=== PATIENT | male | born 1950 | race Caucasian/White ===

== ENCOUNTER 2020-02-29 19:10 | Emergency (ER) | payer OTHER ==
[2020-02-29 19:24] VITALS: BP 145/101; PULSE 103; TEMP 99.1; BMI 37.0
--- NOTE | 2020-02-29 19:39 | PDOC ---
History of Present Illness - General Chief Complaint: Urinary Problem Stated Complaint: Urinary Retention Time Seen by Provider: 02/29/20 19:37 - History of Present Illness Initial Comments: 02/29/20 19:38 HPI 70 y/o M hx of HTN, BPH presents to the ED with urinary retention for the last hour and a half. Pt reports he has has had progressive issues with urine stream, but this is the first time he has been completely unable to void any urine. He reports associated suprapubic pressure and discomfort, but has denied any fevers,chills, nausea,vomiting, PMHx: as noted above ROS: as noted SHx: Denies Etoh, IVDA, tobacco use Allergies: NKDA urologist: Dr. Butch Causey ROS: GENERAL/CONSTITUTIONAL: No fever or chills. No weakness. HEAD, EYES, EARS, NOSE AND THROAT: No change in vision. No ear pain or discharge. No sore throat. CARDIOVASCULAR: No chest pain or shortness of breath RESPIRATORY: No cough, wheezing, or hemoptysis. GASTROINTESTINAL: No nausea, vomiting, diarrhea or constipation. GENITOURINARY: No dysuria, frequency, or change in urination. MUSCULOSKELETAL: No joint or muscle swelling or pain. No neck or back pain. SKIN: No rash NEUROLOGIC: No headache, vertigo, loss of consciousness, or change in strength/sensation. ENDOCRINE: No increased thirst. No abnormal weight change HEMATOLOGIC/LYMPHATIC: No anemia, easy bleeding, or history of blood clots. ALLERGIC/IMMUNOLOGIC: No hives or skin allergy. PE: GENERAL: Awake, alert, and fully oriented, in no acute distress HEAD: No signs of trauma, normocephalic, atraumatic EYES: PERRLA, EOMI, sclera anicteric, conjunctiva clear ENT: Auricles normal inspection, hearing grossly normal, nares patent, oropharynx clear without exudates. Moist mucosa NECK: Normal ROM, supple, no lymphadenopathy, JVD, or masses LUNGS: No distress, speaks full sentences, clear to auscultation bilaterally HEART: Regular rate and rhythm, normal S1 and S2, no murmurs, rubs or gallops, peripheral pulses normal and equal bilaterally. ABDOMEN: Soft, nontender, normoactive bowel sounds. No guarding, no rebound. No masses EXTREMITIES : Normal inspection, Normal range of motion, no edema. No clubbing or cyanosis NEUROLOGICAL: Cranial nerves II through XII grossly intact. Normal speech, normal gait, no focal sensorimotor deficits SKIN: Warm, Dry, normal turgor, no rashes or lesions noted 02/29/20 19:53 02/29/20 19:59 02/29/20 21:43 Past History - Medical History Allergies/Adverse Reactions: Allergies Allergy/AdvReac Type Severity Reaction Status Date / Time No Known Allergies Allergy Verified 02/29/20 19:24 COPD: No Disorders: Yes (enlarge prostate) HTN: Yes - Psycho-Social/Smoking History Smoking History: Never smoked - Substance Abuse Hx (Audit-C & DAST Scrn) How often the patient has a drink containing alcohol: Monthly or less Score: In Men: 4 or > Positive; In Women: 3 or > Positive: 1 Screen Result (Pos requires Nsg. Audit-10AR): Negative In the last yr the pt used illegal drug/Rx for NonMed reason: No Score: Yes response is considered Positive: 0 Screen Result (Positive result requires Nsg. DAST-10): Negative *Physical Exam - Vital Signs Last Vital Signs Temp Pulse Resp BP Pulse Ox 99.1 F 103 H 19 145/101 H 99 02/29/20 19:21 02/29/20 19:21 02/29/20 19:21 02/29/20 19:21 02/29/20 19:21 ED Treatment Course - LABORATORY CBC & Chemistry Diagram: 02/29/20 21:20 02/29/20 21:20 Medical Decision Making - Medical Decision Making 02/29/20 19:59 70 y/o M hx of HTN, BPH presents to the ED with urinary retention for the last hour and a half. Pt reports he has has had progressive issues with urine stream, MDM DDx including but not limited to: Workup: TX: Scores - HEART score - EKG: normal sinus rhythm, HR bpm, AK ms, QRS ms, QTc ms ED course meds: Re-assessment: Ultrasound FINDINGS: There is a Billingsley catheter in the almost empty urinary bladder. Bladder not adequately evaluated due to under distention. Discharge - Discharge Information Problems reviewed: Yes Clinical Impression/Diagnosis: Urinary retention due to benign prostatic hyperplasia Condition: Stable Disposition: HOME - Admission No - Follow up/Referral - Patient Discharge Instructions Patient Printed Discharge Instructions: How to Care for Your Billingsley Catheter -- Male, DI for Urinary Retention in Men Additional Instructions: you were seen in the ED for urinary retention and had a billingsley catheter placed. follow up with your urologist dr. butch causey tomorrow, for further evaluation RETURN TO THE ER -if you develop fevers, chills, abdominal pain or any worsening symptoms from today. - Post Discharge Activity Work/Back to School Note: Back to Work
--- NOTE | 2020-02-29 21:06 | PDOC ---
Documentation entered by Claudia Lee SCRIBE, acting as scribe for Brittney Herr MD. Brittney Herr MD: This documentation has been prepared by the Taya mendoza Sydney, SCRIBE, under my direction and personally reviewed by me in its entirety. I confirm that the documentation accurately reflects all work, treatment, procedures, and medical decision making performed by me. Attending Attestation - Resident Resident Name: Alondra Zhang - ED Attending Attestation I have performed the following: I have examined & evaluated the patient, The case was reviewed & discussed with the resident, I agree w/resident's findings & plan, Exceptions are as noted - HPI HPI: 02/29/20 20:04 Patient is a 70 year old male with a significant past medical history of HTN, BPH who presents to the ED with urinary retention starting 1.5 hours ago. Patient denies having similar symptoms in the past. Denies fever, chills, headache, shortness of breath, nausea, vomiting, or diarrhea. Allergies: NKDA - Physicial Exam PE: 02/29/20 20:40 wnwd 70 yo male p/w urinary retention head ncat neck supple lungs cta b/l cvs [id number] abdomen distended bladder skin warm and dry extremities no LE neuro axox3 - Medical Decision Making 02/29/20 21:05 pt has no fever, no vomiting 14 [place] billingsley placed,urine obtained 02/29/20 22:20 labs reviewed and his cbc is unremarkable,he had normal renal function UA no infection impression BPH,urinary retention he had >400 cc of urine in bag plan d/c home with billingsley and leg bag to see his urologist early this week 02/29/20 22:39 Discharge - Discharge Information Problems reviewed: Yes Clinical Impression/Diagnosis: Urinary retention due to benign prostatic hyperplasia Condition: Stable Disposition: HOME - Follow up/Referral - Patient Discharge Instructions Patient Printed Discharge Instructions: How to Care for Your Billingsley Catheter -- Male, DI for Urinary Retention in Men Additional Instructions: you were seen in the ED for urinary retention and had a billingsley catheter placed. follow up with your urologist dr. sayra mills tomorrow, for further evalu ation RETURN TO THE ER -if you develop fevers, chills, abdominal pain or any worsening symptoms from today. - Post Discharge Activity Work/Back to School Note: Back to Work
[2020-02-29 21:42] LABS: EPI CELLS 1 /uL (0-25.1); HYALINE CASTS 0 /uL (0-3.1); URINE APPEARANCE CLEAR; URINE BACTERIA 3 /uL (0-1359); URINE BILIRUBIN NEGATIVE (NEGATIVE); URINE COLOR YELLOW; URINE GLUCOSE (UA) NEGATIVE (NEGATIVE); URINE KETONE NEGATIVE (NEGATIVE); URINE LEUK ESTERASE NEGATIVE (NEGATIVE); URINE NITRITE NEGATIVE (NEGATIVE); URINE PROTEIN NEGATIVE (NEGATIVE); URINE RBC 1308 /uL (0-23.9); URINE UROBILINOGEN 0.2 mg/dL (0.2-1.0); URINE WBC 2 /uL (0-25.8)
[2020-02-29 21:49] LABS: BASO % 0.6 % (0-2.0); EOS % 0.3 % (0-4.5); HEMATOCRIT 43.5 % (35.4-49); HEMOGLOBIN 14.6 GM/dL (11.7-16.9); LYMPH % 5.6 % (8-40); MCH 30.2 pg (25.7-33.7); MCHC 33.4 g/dl (32.0-35.9); MEAN CELL VOLUME 90.4 fl (80-96); MEAN PLT VOLUME 8.5 fl (7.5-11.1); MONO % 4.4 % (3.8-10.2); NEUT % 89.1 % (42.8-82.8); PLATELET COUNT 189 K/MM3 (134-434); RBC 4.82 M/mm3 (4.00-5.60); WHITE BLOOD COUNT 9.1 K/mm3 (4.0-10.0)
[2020-02-29 21:53] LABS: BLOOD UREA NITROGEN 17.6 mg/dL (7-18); CALCIUM 8.8 mg/dL (8.5-10.1); CREATININE 0.9 mg/dL (0.55-1.3); POTASSIUM 3.4 mmol/L (3.5-5.1)
== END 2020-02-29 23:46 | disposition home or self-care (01) ==
LOC: JER 19:10
DX: N40.1 Benign prostatic hyperplasia with lower urinary tract symptoms (principal)
CPT/HCPCS: 36415; 76856-TC; 80048; 81003; 85025; 87086; 99284-25